=== PATIENT | female | born 2000 | race American Indian/Alaskan Native ===

== ENCOUNTER 2020-05-21 19:58 | Emergency (ER) | payer SELFPAY ==
[2020-05-21 20:48] VITALS: BP 108/78
[2020-05-21 21:25] LABS: Basophils # (Auto) 0.1 K/mm3 (0.0-0.1); Basophils % (Auto) 0.6 % (0.0-1.8); Eosinophils # (Auto) 0.2 K/mm3 (0.0-0.4); Eosinophils % (Auto) 1.7 % (0.0-4.3); Hematocrit 37.1 % (30.3-42.9); Hemoglobin 12.1 gm/dl (10.1-14.3); Lymphocytes # (Auto) 2.2 K/mm3 (1.2-5.4); Lymphocytes % (Auto) 18.7 % (13.4-35.0); Mean Corpuscular HGB Conc 33 % (30-34); Mean Corpuscular Volume 86 fl (79-97); Monocytes # (Auto) 0.8 K/mm3 (0.0-0.8); Monocytes % (Auto) 6.9 % (0.0-7.3); Platelet Count 268 K/mm3 (140-440); Red Blood Count 4.33 M/mm3 (3.65-5.03); Red Cell Distribution Width 12.8 % (13.2-15.2)
[2020-05-21 21:29] LABS: Bilirubin,Urine NEG (Negative); Blood,Urine MOD (Negative); Color,Urine Yellow (Yellow); Mucus,Urine 3+ /HPF; Urobilinogen,Urine < 2.0 mg/dL (<2.0)
[2020-05-21 21:55] LABS: Alanine Aminotransferase 9 units/L (7-56); Albumin 4.8 g/dL (3.9-5); Blood Urea Nitrogen 15 mg/dL (7-17); Calcium 9.4 mg/dL (8.4-10.2); Hemolysis Index 4
[2020-05-21 21:57] LABS: BUN/Creatinine Ratio 21
--- NOTE | 2020-05-21 23:20 | Emergency Department Report ---
ED HPI - General Chief complaint: Vaginal Bleeding Stated complaint: POSS MISCARRIAGE Source: patient Mode of arrival: Ambulatory Limitations: No Limitations - History of Present Illness Initial comments: Patient is a 20-year-old female that presents emergency room with complaints of lower abdominal cramps, vaginal bleeding. Patient states she is approximately 8 weeks . Patient states she had a positive home twice, the first 1 being 4 weeks ago and a more recent 1 4 days ago. Patient states 5 days ago she began having vaginal bleeding and abdominal cramping. Patient states her abdominal pain is a 2 out of 10. Patient states is nonradiating. Patient states the pain is in her suprapubic region and pelvic region. Patient denies fever and chills. Patient denies dysuria. Patient denies vaginal discharge. Patient denies back pain. Patient denies chest pain or shortness of breath. Patient denies nausea vomiting. Patient denies recent travel. Patient denies recent international travel. Patient denies exposure to the novel coronavirus. Patient denies sick contacts. Patient denies fever and chills. Patient denies cough. Patient denies diarrhea. Patient denies coming in contact with anybody with symptoms of the novel coronavirus. Patient states she has appointment for June 02 for her first [facility] visit at [facility]. Patient states she is not taking a vitamin. Patient states she has not had an ultrasound to confirm. Patient states she is a G1, P0. Complaint: abdominal pain, vaginal bleeding -: Sudden Location: pelvis, abdomen Radiation: none Severity: mild Severity scale (0 -10): 2 Quality: cramping Consistency: intermittent Improves with: rest Worsens with: movement Associated symptoms: vaginal bleeding, abdominal pain. denies: nausea/vomiting, vaginal discharge, dysuria, headache, vision changes, malaise, dysparuenia, rash, seizure, shortness of breath, syncope, weakness Vaginal bleeding: heavy, clots :: Yes Number of weeks : 8 OB History - Current : no complications Pre- care: none - Related Data Allergies Allergy/AdvReac Type Severity Reaction Status Date / Time No Known Allergies Allergy Unverified 05/21/20 20:47 ED Review of Systems ROS: Stated complaint: POSS MISCARRIAGE Other details as noted in HPI Constitutional: denies: chills, fever Eyes: denies: eye pain, eye discharge, vision change ENT: denies: ear pain, throat pain Respiratory: denies: cough, shortness of breath, wheezing Cardiovascular: denies: chest pain, palpitations Endocrine: no symptoms reported Gastrointestinal: abdominal pain. denies: nausea, diarrhea Genitourinary: as per HPI. denies: urgency, dysuria, discharge Musculoskeletal: denies: back pain, joint swelling, arthralgia Skin: denies: rash, lesions Neurological: denies: headache, weakness, paresthesias Psychiatric: denies: anxiety, depression Hematological/Lymphatic: denies: easy bleeding, easy bruising ED Past Medical Hx - Past Medical History Previous Medical History?: No - Surgical History Past Surgical History?: No - Family History Family history: no significant - Social History Smoking Status: Never Smoker Substance Use Type: None ED Physical Exam - General Limitations: No Limitations General appearance: alert, in no apparent distress - Head Head exam: Present: atraumatic, normocephalic - Eye Eye exam: Present: normal appearance - ENT ENT exam: Present: mucous membranes moist - Neck Neck exam: Present: normal inspection - Respiratory Respiratory exam: Present: normal lung sounds bilaterally. Absent: respiratory distress - Cardiovascular Cardiovascular Exam: Present: regular rate, normal rhythm. Absent: bradycardia, systolic murmur, diastolic murmur, rubs, gallop - GI/Abdominal GI/Abdominal exam: Present: soft, normal bowel sounds. Absent: distended, tenderness, guarding - Extremities Exam Extremities exam: Present: normal inspection - Back Exam Back exam: Present: normal inspection - Neurological Exam Neurological exam: Present: alert, oriented X3 - Psychiatric Psychiatric exam: Present: normal affect, normal mood - Skin Skin exam: Present: warm, dry, intact, normal color. Absent: rash ED Course Vital Signs 05/21/20 05/22/20 20:46 01:36 Temperature 99.2 F Pulse Rate 108 H 84 Respiratory 19 16 Rate Blood Pressure 108/78 O2 Sat by Pulse 100 100 Oximetry - Reevaluation(s) Reevaluation #1: Ultrasound was done and pending. 05/21/20 23:19 Reevaluation #2: I discussed all results and clinical findings with patient. I discussed plan of care with patient. Patient agrees with plan of care. Patient is stable for discharge. Patient will be discharged home. Patient given discharge instructions. Patient voiced understanding of discharge instructions. 05/22/20 01:26 ED Medical Decision Making - Lab Data Result diagrams: 05/21/20 21:03 05/21/20 21:03 - Radiology Data Radiology results: report reviewed Ultrasound radiology report reviewed. Impression states there is no visible intrauterine . In the setting of a positive test and vaginal bleeding main diagnostic considerations are early intrauterine , spontaneous , nonvisualized . Recommend correlation with serial hCGs and further follow-up evaluations as warranted. - Medical Decision Making Patient is a 20-year-old female presents emergency room with complaints of lower abdominal cramping and vaginal bleeding x5 days. Patient's bleeding increased. Patient had labs done which were essentially unremarkable. Patient had a positive hCG. Patient had a ultrasound done. Patient's transvaginal ultrasound shows findings consistent with nonvisible intrauterine . Findings most likely consistent with a spontaneous miscarriage. Patient stable for discharge. Patient discharged home. Patient will need to follow-up with [employer] [employer]ELOPMENT as soon as possible. - Differential Diagnosis Miscarriage, vaginal bleeding, , vaginal bleeding and Critical care attestation.: If time is entered above; I have spent that time in minutes in the direct care of this critically ill patient, excluding procedure time. ED Disposition Clinical Impression: Vaginal bleeding affecting early , Abdominal cramping, Spontaneous miscarriage, Threatened miscarriage Disposition: -01 TO HOME OR SELFCARE Is pt being admited?: No Does the pt Need Aspirin: No Condition: Stable Instructions: Spontaneous Miscarriage (ED), Threatened Miscarriage (ED) Additional Instructions: Patient to follow-up with primary care in 2 to 3 days. Patient to follow-up with [facility]EL[employer]MENT in 2 to 3 days. Patient to rest. Patient to increase water. Pa tient to avoid strenuous exercise or heavy lifting until cleared by [facility] [employer]ELOPMENT. Patient to start vitamin. Nothing per vagina until cleared by [employer]ELOPMENT. Patient require serial ultrasound and hCGs by her [employer]EL[employer]MENT. Patient to take Tylenol as needed for pain. Patient to return to the ER if condition worsens, changes or new symptoms arise. Referrals: PRIMARY CARE,MD [Primary Care Provider] - 2-3 Days BABAR MAC MD [Staff Physician] - 2-3 Days Forms: Work/School Release Form(ED) Time of Disposition:
--- NOTE | 2020-05-22 09:13 | Ultrasound Report ---
FIRSTTRIME[facility] OBSTETRIC ULTRASOUND HISTORY: Vaginal bleeding. Positive test. COMPARISON: None. TECHNIQUE: Routine transabdominal and transvaginal OB ultrasound performed. FINDINGS: Uterus: Normal size and echogenicity. No uterine masses nor evidence of intrauterine gestational sac , pole or yolk sac. Endometrium: Normal in thickness. Right Ovary: Normal size, blood flow and appearance measuring 3.1 x 1.3 x 1.3 cm. Left Ovary: Normal size, blood flow and appearance measuring 3.2 x 1.8 x 1.7 cm. Additional findings: None. IMPRESSION 1. No visible intrauterine . In the setting of a positive test and vaginal bleedi ng, main diagnostic considerations are early intrauterine , spontaneous , or nonvisu alized ectopic . Recommend correlation with serial quantitative beta-hCG and further follow -up/evaluation as warranted. Signer Name: Sriram Baldwin MD Signed: 05/21/2020 10:35 PM Workstation Name: [id number]
== END 2020-05-22 01:36 | disposition home or self-care (01) ==
LOC: ED 19:58
DX: O20.0 Threatened abortion (principal); Z3A.08 8 weeks gestation of pregnancy
CPT/HCPCS: 36415; 76801; 76817; 80053; 81001; 84702; 85025; 86900; 86901

== ENCOUNTER 2022-03-15 07:37 | Emergency (ER) | payer MEDICAID ==
[2022-03-15] MEDS ORDERED: ONDANSETRON 4 MG/2 ML INJ IV ONE (12:56)
[2022-03-15] MEDS ORDERED: SODIUM CHLORIDE 0.9% 1000 ML 1,000 ML IV ONE (12:56)
--- NOTE | 2022-03-15 12:57 | Emergency Department Report ---
ED HPI - General Chief complaint: Nausea/Vomiting/Diarrhea Stated complaint: 15 WKS DEHYDRAYTED Time Seen by Provider: 03/15/22 12:56 Source: patient Mode of arrival: Ambulatory Limitations: No Limitations - History of Present Illness Initial comments: Patient is a 22-year-old female 2 para 0 AB 1 who comes to the emergency room with nausea and vomiting of . She has no vaginal bleeding or discharge. No dysuria. No abdominal pain. No back pain. Her AIRCRAFT ENGINE MECHANIC told her to come to the ER because she could not keep anything down yesterday. She denies fever or chills. Denies chest pain or shortness of breath. Last menstrual period November 26 Associated symptoms: denies other symptoms, nausea/vomiting. denies: vaginal bleeding, vaginal discharge, abdominal pain, dysuria, headache, vision changes, malaise, dysparuenia, rash, seizure, shortness of breath, syncope, weakness Vaginal bleeding: none :: No Pre- care: followed by OB - Related Data Previous Rx's Medication Instructions Recorded Last Taken Type Ondansetron [Zofran Odt] 4 mg PO Q8HR PRN #10 tab.rapdis 03/15/22 Unknown Rx Promethazine HCl [Phenergan SUPPOS] 25 mg RC Q12H #12 03/15/22 Unknown Rx Allergies Allergy/AdvReac Type Severity Reaction Status Date / Time No Known Allergies Allergy Unverified 05/21/20 20:47 ED Review of Systems ROS: Stated complaint: 15 WKS DEHYDRAYTED Other details as noted in HPI Comment: All other systems reviewed and negative ED Past Medical Hx - Past Medical History Previous Medical History?: No - Surgical History Past Surgical History?: Yes Additional Surgical History: wisdom tooth extraction - Family History Family history: no significant - Social History Smoking Status: Never Smoker Substance Use Type: None - Medications Home Medications: Home Medications Medication Instructions Recorded Confirmed Last Taken Type Ondansetron [Zofran Odt] 4 mg PO Q8HR PRN #10 tab.rapdis 03/15/22 Unknown Rx Promethazine HCl [Phenergan SUPPOS] 25 mg RC Q12H #12 03/15/22 Unknown Rx ED Physical Exam - General Limitations: No Limitations General appearance: alert, in no apparent distress - Head Head exam: Present: atraumatic, normocephalic - Eye Eye exam: Present: normal appearance - ENT ENT exam: Present: mucous membranes moist - Neck Neck exam: Present: normal inspection - Respiratory Respiratory exam: Present: normal lung sounds bilaterally. Absent: respiratory distress - Cardiovascular Cardiovascular Exam: Present: regular rate, normal rhythm. Absent: systolic murmur, diastolic murmur, rubs, gallop - GI/Abdominal GI/Abdominal exam: Present: soft, normal bowel sounds - Extremities Exam Extremities exam: Present: normal inspection - Back Exam Back exam: Present: normal inspection - Neurological Exam Neurological exam: Present: alert, oriented X3 - Psychiatric Psychiatric exam: Present: normal affect, normal mood - Skin Skin exam: Present: warm, dry, intact, normal color. Absent: rash ED Course Vital Signs 03/15/22 03/15/22 07:44 07:48 Temperature 98.3 F Pulse Rate 100 H Respiratory 18 Rate Blood Pressure 107/62 O2 Sat by Pulse 98 Oximetry ED Medical Decision Making - Lab Data Result diagrams: 03/15/22 13:26 03/15/22 13:26 - Medical Decision Making Vital Signs 03/15/22 03/15/22 07:44 07:48 Temperature 98.3 F Pulse Rate 100 H Respiratory 18 Rate Blood Pressure 107/62 O2 Sat by Pulse 98 Oximetry Labs 03/15/22 03/15/22 03/15/22 13:26 13:26 13:54 WBC 10.0 RBC 4.07 Hgb 11.3 Hct 34.7 MCV 85 MCH 28 MCHC 33 RDW 13.7 Plt Count 295 Lymph % (Auto) 12.7 L Rankin % (Auto) 5.4 Eos % (Auto) 0.4 Baso % (Auto) 0.2 Lymph # (Auto) 1.3 Rankin # (Auto) 0.5 Eos # (Auto) 0.0 Baso # (Auto) 0.0 Seg Neutrophils % 81.3 H Seg Neutrophils # 8.2 H Sodium 136 L Potassium 3.6 Chloride 99.5 Carbon Dioxide 21 L Anion Gap 19 BUN 9 Creatinine 0.4 L Estimated GFR > 60 BUN/Creatinine Ratio 23 Glucose 61 L Calcium 9.6 Total Bilirubin 0.30 AST 27 ALT 18 Alkaline Phosphatase 55 Total Protein 7.3 Albumin 4.1 Albumin/Globulin Ratio 1.3 Lipase 58 Urine Color Yellow Urine Turbidity Clear Urine pH 6.0 Ur Specific [place] 1.025 Urine Protein 30 mg/dl Urine Glucose (UA) Negative Urine Ketones 2+ Urine Blood Negative Urine Nitrite Negative Ur Reducing Substances Not Reportable Urine Bilirubin Negative Urine Ictotest Not Reportable Urine Urobilinogen 2.0 Ur Leukocyte Esterase Negative Urine WBC (Auto) 7.0 H Urine RBC (Auto) 12.0 U Epithel Cells (Auto) 15.0 H Urine Mucus 3+ 1 L NS 1L D5NS 1 AMP D50 LABS NOTED UA NOTED 1645 REPORTS FEELING BETTER Patient taking p.o. Vital signs are stable. Glucose has improved. Patient has been informed of the above lab findings. I discussed with her my concerns with her hyperglycemia. She is to follow-up with her AIRCRAFT ENGINE MECHANIC in the [facility]. Patient being discharged home with discharge plan of care including diet, activity, medications and follow-up. She verbalizes understanding of plan of care - Differential Diagnosis Rule out dehydration associated with nausea and vomiting of , rule Critical care attestation.: If time is entered above; I have spent that time in minutes in the direct care of this critically ill patient, excluding procedure time. ED Disposition Clinical Impression: Nausea and vomiting during , Hypoglycemia Disposition: 01 HOME / SELF CARE / HOMELESS Is pt being admited?: No Does the pt Need Aspirin: No Condition: Stable Instructions: Hyperemesis Gravidarum Additional Instructions: TYLENOL FOR PAIN MEDS ORDERED TODAY FOR NAUSEA FOLLOW UP WITH OBGYN IN AM YOU NEED TO BE FOLLOWED CLOSELY DUE TO LOW GLUCOSE Prescriptions: Promethazine HCl [Phenergan SUPPOS] 25 mg RC Q12H #12 Ondansetron [Zofran Odt] 4 mg PO Q8HR PRN #10 tab.rapdis PRN Reason: Vomiting Referrals: DASH CHENEY MD [Primary Care Provider] - 3-5 Days KENN KUO MD [Staff Physician] - 3-5 Days Time of Disposition: 16:42
[2022-03-15 14:20] LABS: Alanine Aminotransferase 18 units/L (7-56); Albumin 4.1 g/dL (3.9-5); Blood Urea Nitrogen 9 mg/dL (7-17); Calcium 9.6 mg/dL (8.4-10.2); Hemolysis Index 0
[2022-03-15 14:25] LABS: Basophils % (Auto) 0.2 % (0.0-1.8); Eosinophils % (Auto) 0.4 % (0.0-4.3); Hematocrit 34.7 % (30.3-42.9); Hemoglobin 11.3 gm/dl (10.1-14.3); Lymphocytes # (Auto) 1.3 K/mm3 (1.2-5.4); Lymphocytes % (Auto) 12.7 % (13.4-35.0); Mean Corpuscular HGB Conc 33 % (30-34); Mean Corpuscular Volume 85 fl (79-97); Monocytes # (Auto) 0.5 K/mm3 (0.0-0.8); Monocytes % (Auto) 5.4 % (0.0-7.3); Platelet Count 295 K/mm3 (140-440); Red Blood Count 4.07 M/mm3 (3.65-5.03); Red Cell Distribution Width 13.7 % (13.2-15.2)
[2022-03-15 14:56] LABS: BUN/Creatinine Ratio 23
[2022-03-15] MEDS ORDERED: DEXTROSE 50% IN WATER (25GM) 50 ML SYRINGE IV ONE (15:14)
[2022-03-15] MEDS ORDERED: D5W/0.9% NACL 1,000 ML IV SCH (16:00)
[2022-03-15 16:08] LABS: Mucus,Urine 3+ /HPF
[2022-03-15 16:25] LABS: Bilirubin,Urine Negative (Negative); Color,Urine Yellow (Yellow)
[2022-03-15 16:26] LABS: Blood,Urine Negative (Negative)
[2022-03-15 17:54] VITALS: BP 114/78
== END 2022-03-15 17:54 | disposition home or self-care (01) ==
LOC: ED 07:37
DX: O21.8 Other vomiting complicating pregnancy (principal); E16.2 Hypoglycemia, unspecified; Z3A.15 15 weeks gestation of pregnancy
CPT/HCPCS: 36415; 80053; 81001; 83690; 85025; 96361; 96365; 96367; 96375; 96376; 99283; J2405; J7030; J7042; 96374; J3490

== ENCOUNTER 2022-04-13 15:09 | Emergency (ER) | payer MEDICAID ==
[2022-04-13 16:02] VITALS: BP 108/61
--- NOTE | 2022-04-13 16:07 | Emergency Department Report ---
ED Recheck HPI - General Chief Complaint: Recheck/Abnormal Lab/Rx Stated Complaint: FLUID NEEDED/REFILL Time Seen by Provider: 04/13/22 16:03 Source: patient Mode of arrival: Ambulatory Limitations: No Limitations - History of Present Illness Initial Comments: 22 yo comes to ER with N/V of . She has been seen here before. She does not see obgyn until Monday and has n/v. She has no other symptoms. no fever. no chills. no dysuria. no vag bleeding. she is ambulatory and non ill appearing MD Complaint: medication refill request - Related Data Previous Rx's Medication Instructions Recorded Last Taken Type Ondansetron [Zofran Odt] 4 mg PO Q8HR PRN #10 tab.theo 03/15/22 Unknown Rx Promethazine HCl [Phenergan SUPPOS] 25 mg RC Q12H #12 03/15/22 Unknown Rx Ondansetron [Zofran Odt] 4 mg PO Q8HR PRN #20 tab.serafindis 04/13/22 Unknown Rx Allergies Allergy/AdvReac Type Severity Reaction Status Date / Time No Known Allergies Allergy Verified 04/13/22 15:44 ED Review of Systems ROS: Stated complaint: FLUID NEEDED/REFILL Other details as noted in HPI Comment: All other systems reviewed and negative ED Past Medical Hx - Past Medical History Previous Medical History?: No - Surgical History Past Surgical History?: Yes Additional Surgical History: wisdom tooth extraction - Family History Family history: no significant - Social History Smoking Status: Never Smoker Substance Use Type: None - Medications Home Medications: Home Medications Medication Instructions Recorded Confirmed Last Taken Type Ondansetron [Zofran Odt] 4 mg PO Q8HR PRN #10 tab.serafindis 03/15/22 Unknown Rx Promethazine HCl [Phenergan SUPPOS] 25 mg RC Q12H #12 03/15/22 Unknown Rx Ondansetron [Zofran Odt] 4 mg PO Q8HR PRN #20 tab.rapdis 04/13/22 Unknown Rx ED Physical Exam - General Limitations: No Limitations General appearance: alert, in no apparent distress - Head Head exam: Present: atraumatic, normocephalic - Eye Eye exam: Present: normal appearance - ENT ENT exam: Present: mucous membranes moist - Neck Neck exam: Present: normal inspection - Respiratory Respiratory exam: Present: normal lung sounds bilaterally. Absent: respiratory distress - Cardiovascular Cardiovascular Exam: Present: regular rate, normal rhythm. Absent: systolic murmur, diastolic murmur, rubs, gallop - GI/Abdominal GI/Abdominal exam: Present: soft, normal bowel sounds - Extremities Exam Extremities exam: Present: normal inspection - Back Exam Back exam: Present: normal inspection - Neurological Exam Neurological exam: Present: alert, oriented X3 - Psychiatric Psychiatric exam: Present: normal affect, normal mood - Skin Skin exam: Present: warm, dry, intact, normal color. Absent: rash ED Course Vital Signs 04/13/22 15:47 Temperature 97.9 F Pulse Rate 96 H Respiratory 20 Rate Blood Pressure 108/61 [Right] O2 Sat by Pulse 100 Oximetry ED Recheck MDM - Core Measures Measure Exclusions: not indicated - Differential Diagnosis Prescription Refill(s) - Medical Decision Making Vital Signs 04/13/22 15:47 Temperature 97.9 F Pulse Rate 96 H Respiratory 20 Rate Blood Pressure 108/61 [Right] O2 Sat by Pulse 100 Oximetry here for zofran med refill and has n/v ran out of meds does not see obgyn until Monday Has been seen here in the past and full preg work up. dc home with dc plan of care including diet, meds, activity and follow up. She verbalizes understanding of plan of care. Critical care attestation.: If time is entered above; I have spent that time in minutes in the direct care of this critically ill patient, excluding procedure time. ED Disposition Clinical Impression: Nausea/vomiting in Disposition: 01 HOME / SELF CARE / HOMELESS Is pt being admited?: No Does the pt Need Aspirin: No Condition: Stable Instructions: Hyperemesis Gravidarum Additional Instructions: follow up with obgyn as planned Prescriptions: Ondansetron [Zofran Odt] 4 mg PO Q8HR PRN #20 tab.rapdis PRN Reason: Vomiting Time of Disposition: 16:08
== END 2022-04-13 17:50 | disposition home or self-care (01) ==
LOC: ED 15:09
DX: O21.9 Vomiting of pregnancy, unspecified (principal); Z3A.00 Weeks of gestation of pregnancy not specified
CPT/HCPCS: 99282